=== PATIENT | male | born 1990 | race Caucasian/White ===

== ENCOUNTER 2017-01-04 12:34 | Emergency (ER) | payer SELFPAY ==
[2017-01-04 12:48] VITALS: TEMP 98; BMI 29.9
[2017-01-04] MEDS ORDERED: SODIUM CHLORIDE 1,000 ML IV STA (13:34)
[2017-01-04] MEDS ORDERED: KETOROLAC TROMETHAMINE 30 MG/1 ML VIAL IVPUSH ONE (13:34)
[2017-01-04] MEDS ORDERED: METOCLOPRAMIDE HCL INJECTION 10 MG/2 ML VIAL IVPUSH ONE (13:34)
--- NOTE | 2017-01-04 13:34 | PDOC ---
History of Present Illness - General Chief Complaint: Chest Pain Stated Complaint: CHEST PAIN Time Seen by Provider: 01/04/17 13:14 - History of Present Illness Initial Comments: 01/04/17 14:25 The patient is a 26 year old female with no significant PMH who presents for evaluation of headache and chest pain. The patient reports gradual onset of a throbbing headache yesterday evening with associated photophobia. He reports that he gets headaches similar to this in the past 1-2 times a week for most of his life. However this time was associated with some sternal chest pain worse with certain movements prompting his presentation to the ED for evaluation. The patient denies fevers, chills, SOB, nausea, vomiting, abdominal pain, or changes with urination or bowel movements. Past History - Past Medical History Allergies/Adverse Reactions: Allergies Allergy/AdvReac Type Severity Reaction Status Date / Time No Known Allergies Allergy Verified 01/04/17 12:48 Home Medications: Ambulatory Orders NK [No Known Home Medication] 04/09/15 COPD: No Other medical history: denies - Surgical History Abdominal Surgery: Yes (HERNIA) - Immunization History Immunization Up to Date: Yes - Suicide/Smoking/Psychosocial Hx Smoking Status: No Smoking History: Never smoked Number of Cigarettes Smoked Daily: 0 Cigars Per Day: 0 Information on smoking cessation initiated: No Hx Alcohol Use: No Drug/Substance Use Hx: No Substance Use Type: None Review of Systems - Review of Systems Comments:: 01/04/17 14:27 Constitutional: No fevers, chills, fatigue, malaise HEENT: No Rhinorrhea, nasal congestion, visual changes Cardiovascular: Chest pain. No syncope, palpitations, lightheadedness Respiratory: No Cough, SOB, Hemoptysis, Gastrointestinal: No Abdominal pain, Nausea, Vomiting, Constipation, Diarrhea, Melena Genitourinary: No Dysuria, Frequency, Urgency, Hesitancy, Hematuria, Flank pain Musculoskeletal: No Myalgia, arthralgia Skin: No rashes, bruising, pallor Neurologic: Headache. No Dizziness, Numbness, Weakness, or Tingling Psychiatric: No Hallucinations. No SI or HI *Physical Exam - Vital Signs Last Vital Signs Temp Pulse Resp BP Pulse Ox 98 F 95 H 19 135/80 98 01/04/17 12:46 01/04/17 12:46 01/04/17 12:46 01/04/17 12:46 01/04/17 12:46 - Physical Exam Comments: 01/04/17 14:28 General Appearance: Nourished. No Apparent Distress HEENT: EOMI, DURGA. No Pharyngeal Erythema, Tonsillar Exudate, Tonsillar Erythema Neck: No Cervical Lymphadenopathy Respiratory/Chest: Lungs Clear, Normal Breath Sounds. Reproducible tenderness to palpation of the sternum. No Crackles, Rales, Rhonchi, Wheezing Cardiovascular: Regular Rhythm, Regular Rate. No Murmur, Gallops, Rubs Gastrointestinal/Abdominal: Normal Bowel Sounds, Soft. No Guarding, Rebound, Tenderness Musculoskeletal: No CVA Tenderness Extremity: Normal Capillary Refill Integumentary: Normal Color, Dry, Warm Neurologic: java performance engineer II-XII NML intact, Fully Oriented, Alert, Normal Mood/Affect, Normal Response, Motor Strength 5/5. ED Treatment Course - LABORATORY CBC & Chemistry Diagram: 01/04/17 13:45 01/04/17 13:45 Medical Decision Making - Medical Decision Making 01/04/17 14:29 The patient is a 26 year old female with no significant PMH who presents for evaluation of headache and chest pain. Differential includes but is not limited to: musculoskeletal, migraine, pericarditis, infectious, metabolic derangement. Given the patient's history, it is likely his headache is due to migraines given it is unchanged from previous headaches in the past. The patient's chest pain is likely musculoskeletal in nature given his history of pain worse with certain movements. However we will obtain a cbc, cmp, troponin , ekg and chest plain film to evaluate for other etiologies. We will treat him with reglan, benadryl, iv fluids, and toradol and continue to monitor and reassess. 01/04/17 16:00 cbc, cmp, troponin, ekg are unremarkable. chest plain film is unremarkable as read by our radiologist. The patient reports significant improvement in his symptoms and is requesting discharge. We are comfortable discharging the patient home at this time with PCP follow up. We discussed the results and return precautions with the patient. The patient voiced understanding and is agreeable with the plan. *DC/Admit/Observation/Transfer Diagnosis at time of Disposition: Costochondritis Headache Qualifiers: Headache type: unspecified Headache chronicity pattern: unspecified pattern Intractability: not intractable Qualified Code(s): R51 - Headache - Discharge Dispostion Disposition: HOME Condition at time of disposition: Improved Admit: No - Referrals Referrals: Galen Weaver MD [Staff Physician] - - Patient Instructions Printed Discharge Instructions: DI for Atypical Chest Pain Additional Instructions: Please return to the ER if you experience concerning or worsening symptoms including numbness or weakness in your extremities or worsening pain. Your lab results were normal here in the ER. You may use ibuprofen or tylenol at home as needed to help control your symptoms. Please call to schedule a follow up appointment with a primary care provider to discuss your ER visit. - Post Discharge Activity
[2017-01-04] MEDS ORDERED: METOCLOPRAMIDE HCL INJECTION 10 MG/2 ML VIAL ONE (13:52)
[2017-01-04] MEDS ORDERED: KETOROLAC TROMETHAMINE 30 MG/1 ML VIAL ONE (13:55)
[2017-01-04 14:25] LABS: BASOPHIL 0.7 % (0-2.0); EOSINOPHIL 0.8 % (0-4.5); MCH 28.6 pg (25.7-33.7); MCHC 33.6 g/dl (32.0-35.9); MEAN CELL VOLUME 85.1 fl (80-96); MEAN PLT VOLUME 7.9 fl (7.5-11.1); NEUTROPHILS 64.8 % (42.8-82.8); PLATELET COUNT 329 K/MM3 (134-434); RDW 13.2 % (11.9-15.9); WHITE BLOOD COUNT 6.5 K/mm3 (4.0-10.0)
[2017-01-04 14:29] LABS: ALBUMIN 4.3 g/dl (3.4-5.0); ALK PHOS 102 U/L (45-117); ANION GAP 10 (8-16); BILIRUBIN,TOTAL 0.4 mg/dL (0.2-1.0); CALCIUM 9.4 mg/dL (8.5-10.1); CO2 25 mmol/L (21-32); GLUCOSE,RANDOM 89 mg/dL (74-106); SGOT/AST 21 U/L (15-37); SGPT/ALT 33 U/L (12-78); TOT PROT 7.8 g/dl (6.4-8.2)
[2017-01-04 14:31] LABS: CPK 163 IU/L (39-308); TROPONIN I < 0.02 ng/ml (0.00-0.05)
[2017-01-04] MEDS ORDERED: ACETAMINOPHEN 325 MG TABLET (FP) PO ONE (15:49)
[2017-01-04] MEDS ORDERED: ACETAMINOPHEN 325 MG TABLET (FP) ONE ×2 (15:55→15:56)
[2017-01-04 16:07] VITALS: BP 128/75; PULSE 75
--- NOTE | 2017-01-04 16:26 | PDOC ---
Attending Attestation - Resident Resident Name: Rory Ruffin - ED Attending Attestation I have performed the following: I have examined & evaluated the patient, The case was reviewed & discussed with the resident, I agree w/resident's findings & plan, Exceptions are as noted - HPI HPI: 01/04/17 16:23 26-year-old male with a history of frequent migraines here today complaining of headache and chest pain. Patient denies fevers chills, no nausea no vomiting. Headache is similar to prior headaches. Chest pain is worse with movement and deep breathing. Denies cough. No history of PE or DVT no recent leg swelling or pain and no recent travel. - Physicial Exam PE: 01/04/17 16:24 No acute distress. Awake and alert. Lungs are clear bilaterally. Reproducible chest wall tenderness. Heart is regular no murmurs rubs or gallops. Abdomen is soft and nontender. Extremities are warm well perfused no edema no calf tenderness. Neurologically patient is alert and oriented 3, 5 out of 5 muscle strength bilateral - Medical Decision Making 01/04/17 16:25 26-year-old male history of migraines here with complaints of headaches chest pain. Reproducible tenderness on exam. Plan treat with J with Reglan IV fluids Benadryl and Tylenol. We'll send labs including troponin and EKG. Patient has no risk factors currently for PE. Reassess following medications and likely outpatient follow-up
--- NOTE | 2017-01-07 14:05 | EKG ---
Test Reason : Blood Pressure : / mmHG Vent. Rate : 084 BPM Atrial Rate : 084 BPM P-R Int : 134 ms QRS Dur : 084 ms QT Int : 326 ms P-R-T Axes : 025 035 024 degrees QTc Int : 385 ms NORMAL SINUS RHYTHM NORMAL ECG NO PREVIOUS ECGS AVAILABLE Confirmed by ADINA ARIAS MD ([id number]) on 01/07/2017 2:05:29 PM Referred By: Confirmed By:ADINA ARIAS MD
== END 2017-01-04 16:08 | disposition home or self-care (01) ==
LOC: JER 12:34
PROC: 3E033GC Introduction of Other Therapeutic Substance into Peripheral Vein, Percutaneous Approach (ICD-10-PCS; principal; 2017-01-04)
PROC: 3E0333Z Introduction of Anti-inflammatory into Peripheral Vein, Percutaneous Approach (ICD-10-PCS; 2017-01-04)
PROC: 3E0337Z Introduction of Electrolytic and Water Balance Substance into Peripheral Vein, Percutaneous Approach (ICD-10-PCS; 2017-01-04)
DX: M94.0 Chondrocostal junction syndrome [Tietze] (principal); R51 Headache
CPT/HCPCS: 36415; 71020-TC; 80053; 82550; 82553; 84484; 85025; 93005; 93010; 99283-25